=== PATIENT | female | born 1980 | race Two or more races ===

== ENCOUNTER → 2024-09-30 | Outpatient (CLI) | payer MEDICAID, SELFPAY ==
--- NOTE | 2024-09-30 14:15 | XR_ITS ---
Examination: Screening digital mammography, bilateral Computer aided detection 3-D breast Tomosynthesis, bilateral Date and time of exam: 09/30/2024, 2:06 PM Comparisons: August 2023, September 2023 Indications: Screening Technique: Nonmagnified MLO, CC views of the breasts to been obtained, reconstructed from 3-D Tomosynthesis images. R2 computer aided detection program utilized for evaluation of suspicious masses and/or abnormal calcifications. 3-D Tomosynthesis images obtained. Technologist: Findings: There are scattered areas of fibroglandular density. No evidence of abnormal masses or suspicious calcifications. Impression: BI-RADS category 1: Negative findings (within normal) Recommend 1 year follow-up mammogram
== END | disposition home or self-care (01) ==
PROVIDERS: PCP Nurse Practitioner Primary Care; Referring Provider Nurse Practitioner Primary Care; Visit Provider Nurse Practitioner Primary Care
DX: Z12.31 Encounter for screening mammogram for malignant neoplasm of breast (principal); R92.313 Mammographic fatty tissue density, bilateral breasts
CPT/HCPCS: 77063; 77067

== ENCOUNTER 2025-03-14 21:23 | Emergency (ER) | payer MEDICAID, SELFPAY ==
--- NOTE | 2025-03-14 21:40 | XR_ITS ---
Examination: Transvaginal ultrasound of the pelvis, complete Technique: Transvaginal sonographic images pelvis performed using arteaga scale imaging Exam date and time: March 14, 2025, 2156 hrs. Findings: Uterus 9.8 cm endometrial stripe 0.4 cm No uterine mass or intrauterine gestation Ovaries obscured by bowel gas Impression: Limited study No uterine mass or intrauterine gestation.
--- NOTE | 2025-03-14 21:46 | EDNOTE_ITS ---
ED OB Contraction Preg RMI/HPI General Chief complaint: Vaginal Bleeding Stated complaint: VAGINAL BLEEDING Time Seen by Provider: 03/14/25 21:32 Source: patient Arrival date/time: 03/14/25 21:23 Mode of arrival: ambulatory RME / HPI RME / HPI Narrative: Ms. Reynolds is a 44-year-old female with no significant past medical history who presented to [facility] emergency department with a chief complaint of vaginal bleeding. 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 Related Data Previous Rx's ?Medication ?Instructions ?Recorded albuterol sulfate 90 mcg/actuation 2 puff inhalation Q ID PRN 11/24/21 aerosol inhaler shortness of breath or wheez ing #8.5 grams ibuprofen 600 mg tablet 600 mg PO QID PRN pain #30 t abs 11/24/21 ibuprofen 800 mg tablet 800 mg PO TID PRN pain #30 t abs 11/29/21 ibuprofen 800 mg tablet 800 mg PO TID PRN pain #30 t abs 02/08/22 tramadol 50 mg tablet 50 mg PO BID PRN pain #8 tab s 02/08/22 polyethylene glycol 3350 17 gram 17 g PO QDAY #14 ea 0 08/16/22 oral powder packet (Miralax) naproxen 500 mg tablet (Naprosyn) 500 mg PO BID PRN pa in #60 tabs 08/30/22 Allergies Allergy/AdvReac Type Severity Reaction Status Date / Time No Known Drug Allergies Allergy Verified 03/14/25 21:24 Review of Systems Review of Systems Systems Reviewed: All systems reviewed, normal except as documented Past Medical History Past Medical History NEUROLOGIC: Negative Neurological Disorders or Seizures CARDIAC: Positive Edema; Negative Cardiac Disorders or Congestive Heart Failure RESPIRATORY: Negative Chronic Obstructive Pulmonary Disease (COPD) or Sleep Apnea GASTROINTESTINAL: Negative Gastrointestinal Disorders GENITOURINARY: Negative Genitourinary Disorders or Renal Disease REPRODUCTIVE: Positive Previous Pregnancies MUSCULOSKELETAL: Positive Musculoskeletal Disorders ENDOCRINE: Positive Endocrine Disorders and Hypoglycemia; Negative Diabetes Mellitus Type 1 or Diabetes Mellitus Type 2 HEMATOLOGIC: Negative Blood Disorders or Anemia OTHER HISTORY: Positive Anesthesia Reactions; Negative Autoimmune Disease, Blood Transfusions, Blood Transfusion Reaction, Chemotherapy, MRSA, Clostridium Difficile or Cancer Surgical History SURGICAL: Positive Tubal Ligation Social History SMOKING STATUS: Never smoker ED Exam Narrative Physical exam: Physical Exam General: Awake and in no acute distress. Conversational and non-toxic appearing. HEENT: Normocephalic, atraumatic, mucous membranes moist. Heart: Regular rate and rhythm, no murmurs. Lungs: Clear to auscultation with no wheezing or crackles. Abdomen: Soft, nondistended, minimal lower abdomen tenderness, positive bowel sounds. ?No guarding or rebound tenderness. Neurologic: Alert and oriented x3, no gross neurological deficit, and patient able to move all 4 extremities. Extremities: No edema. Skin: No rash or ecchymoses. Course Quality Measures none Orders Category Date Time Status US transvaginal Stat Exams 03/14/25 21:40 Completed Beta HCG,Quantitative Stat Lab 03/14/25 22:03 Completed CBC Stat Lab 03/14/25 22:03 Completed CMP [Comprehensive Metabolic Panel] Stat Lab 03/14/25 22:03 Completed Free T4 (Free Thyroxine) Stat Lab 03/14/25 22:03 Completed INR [Prothrombin Time with INR] Stat Lab 03/14/25 22:03 Completed PTT [Partial Thromboplastin Time] Stat Lab 03/14/25 22:03 Completed TSH [Thyroid Stimulating Hormone] Stat Lab 03/14/25 22:03 Completed Type and Screen Stat Lab 03/14/25 22:03 Completed Dicyclomine [Bentyl] Med 03/14/25 21:38 Discontinued 10 mg PO X1 ONE MEDRoxyPROGESTERone ACET Inj [Depo-Provera Inj] Med 03/14/25 23:16 Discontinued 150 mg IM X1 ONE Naproxen [Naprosyn] Med 03/14/25 21:44 Discontinued 500 mg PO X1 ONE Vital Signs Vital signs: Vital Signs Temperature 97.7 F 03/14/25 23:57 Pulse Rate 72 03/14/25 23:57 Respiratory Rate 17 03/14/25 23:57 Blood Pressure 135/82 H 03/14/25 23:57 Pulse Oximetry (%) 97 03/14/25 23:57 Vaginal Bleeding MDM Narrative MDM Narrative: # Abnormal uterine bleeding # Vaginal bleeding 44-year-old female with no significant past medical history seen in ED today for vaginal bleeding Patient had normal menstrual flow-up till , has continuous heavy flow since 03/11 for the last 5 days reports heavy bleeding with clots Workup: CBC: WBC 9.1 hemoglobin 11.5 hematocrit 34.8, platelets 238 Coags: PT 10.4 INR 0.9 APTT 24.4 Chemistry: Sodium 142 potassium 3.8 chloride 108 bicarb 27.8 anion gap 6 BUN 8 creatinine 0.8 GFR greater than 60 glucose 79 osmolality 280 corrected calcium 9.2 bilirubin 0.3 AST 11 ALT less than 7 alk phos 43 total protein 6.5 albumin 4.2 globulin 2.3 TSH 2.96 free T41.21 Beta-hCG less than 0 Transvaginal ultrasound shows uterus 9.8 cm endometrial stripe 0.4 cm no uterine mass or intrauterine gestation Findings discussed with [facility] EQUIP[facility] OPER[facility] Dr. Guerrier who recommended Depo-Provera IM 150 mg, otherwise patient was given naproxen 500 mg and dicyclomine 10 mg p.o. in the ED. Patient stable for discharge, encourage patient to follow-up with [facility] E[facility]PER[facility] Dr Guerrier outpatient Case discussed with Attending Physician Dr. Keily Block MD Internal Medicine PGY-2 Disclaimer: This note was dictated by speech recognition. Minor errors in senior developer may be present due to voice recognition software. Patient data External records reviewed:: [facility] previous records Clinical information provided by:: patient Social determinants that could affect healthcare access:: none Patient has the following chronic illnesses:: None How is presenting disease/condition affected by chronic disease/condition?: no chronic disease Evaluation data The following diagnostics were reviewed and interpreted by me:: lab results and radiology exam(s) Lab and/or radiology exams considered but not ordered:: None Interpretation Summary: CBC: WBC 9.1 hemoglobin 11.5 hematocrit 34.8, platelets 238 Coags: PT 10.4 INR 0.9 APTT 24.4 Chemistry: Sodium 142 potassium 3.8 chloride 108 bicarb 27.8 anion gap 6 BUN 8 creatinine 0.8 GFR greater than 60 glucose 79 osmolality 280 corrected calcium 9.2 bilirubin 0.3 AST 11 ALT less than 7 alk phos 43 total protein 6.5 albumin 4.2 globulin 2.3 TSH 2.96 free T41.21 Beta-hCG less than 0 Transvaginal ultrasound shows uterus 9.8 cm endometrial stripe 0.4 cm no uterine mass or intrauterine gestation Medications / Prescriptions Medications or Prescriptions considered but not ordered:: None Medication administrations:: Medication Administration History Discontinued Medications Dicyclomine HCl (Dicyclomine 10 Mg Capsule) 10 mg PO X1 ONE Stop: 03/14/25 21:39 Last Admin: 03/14/25 21:51 Dose: 10 mg Documented By: JEAN PAUL Medroxyprogesterone Acetate (Medroxyprogesterone Acet Inj 150 Mg/Ml Syringe) 150 mg IM X1 ONE Stop: 03/14/25 23:17 Last Admin: 03/14/25 23:53 Dose: 150 mg Documented By: OA Naproxen (Naproxen 250 Mg Tablet) 500 mg PO X1 ONE Stop: 03/14/25 21:45 Last Admin: 03/14/25 21:50 Dose: 500 mg Documented By: OA As Above Consultations Consultation(s) initiated? (list below): Yes Consultation #1 (Physician, Specialty, Details): Dr Guerrier, [facility] EQUIPMENT OPERATOR Diagnosis Vaginal Bleeding Differential Diagnosis: dysfunctional uterine bleeding, menometrorrhagia and vaginal bleeding Most likely diagnosis given after review of the tests above:: Abnormal Uterine Bleeding Admission Indicated Admission indicated?: not indicated Admission Request Was there a request for admission?: No Disposition Plan Disposition Plan: Discharge Discharge Attestation Discharge Attestation: The patient and all family members were given an opportunity to ask questions and understood the discharge instructions. Discharge instructions specifically effects, indications for sooner follow up or return to the emergency department, and the expected course of current diagnosis. Patient condition: Stable Discharge Plan Plan Patient Disposition: HOME (Self Care) Patient condition on transfer: Stable Health Concerns: - You were seen in the emergency department today for acute abnormal uterine bleeding, we did a transvaginal ultrasound which showed uterus 9.8 cm, endometrial stripe 0.4 cm and your lab work showed hemoglobin 11.5. We discussed these findings with the RO[facility] EQUIPMENT OPERATOR who recommended Depo-Provera shot 150mg which was given to you in the emergency department. - Otherwise your labs were unremarkable, we recommend following up with [facility] EQU[facility] OPER[facility] outpatient, have attached the office information for Dr. Guerrier please call his office to make an appointment. - Follow-up with your primary care physician within 1 week, do further anemia workup as warranted - Return to the emergency department if your symptoms worsen or you have uncontrolled bleeding. Prescriptions/Referrals Prescriptions/Med Rec: No Action ibuprofen 600 mg tablet 600 mg PO QID PRN (Reason: pain) Qty: 30 0RF albuterol sulfate 90 mcg/actuation HFA aerosol inhaler 2 puff inhalation QID PRN (Reason: shortness of breath or wheezing) Qty: 8.5 0RF ibuprofen 800 mg tablet 800 mg PO TID PRN (Reason: pain) Qty: 30 0RF tramadol 50 mg tablet 50 mg PO BID PRN (Reason: pain) Qty: 8 0RF ibuprofen 800 mg tablet 800 mg PO TID PRN (Reason: pain) Qty: 30 0RF polyethylene glycol 3350 [Miralax] 17 gram powder in packet 17 g PO QDAY Qty: 14 0RF naproxen [Naprosyn] 500 mg tablet 500 mg PO BID PRN (Reason: pain) Qty: 60 0RF Referrals: Perico Guerrier MD [Physician, [facility] EQUIPMENT OPERATOR] - In 1 week No Primary/Family,Physician [Primary Care Provider] - In 1 week Problem List Clinical Impression: Dysfunctional uterine bleeding Patient/Caregiver Discharge Instructions Discharge Activity: activity as tolerated Education Materials: ED Dysfunctional Uterine Bleeding Print Language: Belarusian Stand Alone Forms: Shannan Award Info., Patient Portal Info Letter
[2025-03-14] MEDS: NAPROXEN 250 MG TABLET 500 MG PO (21:50)
[2025-03-14] MEDS: DICYCLOMINE 10 MG CAPSULE PO (21:51)
[2025-03-14 22:31] LABS: Basophils # (Auto) 0.0 Thou/mm3 (0.0-0.2); Basophils % (Auto) 0 % (0-2.5); Eosinophils # (Auto) 0.1 Thou/mm3 (0.0-0.5); Eosinophils % (Auto) 2 % (0-10); Hematocrit 34.8 % (36.0-46.0); Hemoglobin 11.5 g/dL (12.0-16.0); Immature Granulocytes Auto 0.02 Thou/mm3 (0.00-0.00); Lymphocytes # (Auto) 3.6 Thou/mm3 (1.0-4.8); Lymphocytes % (Auto) 39 % (10-50); Mean Corpuscular HGB Conc 33.0 g/dl (31.0-37.0); Mean Corpuscular Hemoglobin 28.0 pg (25.0-35.0); Mean Corpuscular Volume 85 fL (80-100); Monocytes # (Auto) 0.6 Thou/mm3 (0.0-0.8); Monocytes % (Auto) 6 % (0-12); Neutrophils # (Auto) 4.8 Thou/mm3 (1.8-7.7); Neutrophils % (Auto) 53 % (37-80); Nucleated Red Blood Cell # 0.00 Thou/mm3 (0.00-0.00); Nucleated Red Blood Cell % 0 /100 WBC (0); Platelet Count 238 Thou/mm3 (140-440); RDW Standard Deviation 43.2 fL (36.4-46.3); Red Blood Count 4.10 Miln/mm3 (4.00-5.20); White Blood Count 9.1 Thou/mm3 (3.6-11.0)
[2025-03-14 22:47] LABS: INR 0.9 (0.9-1.3); Partial Thromboplastin Time 24.4 Seconds (22.0-36.0); Prothrombin Time 10.4 Seconds (9.0-12.2)
[2025-03-14 23:06] LABS: Alanine Aminotransferase < 7 U/L (10-49); Albumin, Serum 4.2 gm/dL (3.5-5.0); Albumin/Globulin Ratio 1.8 (1.2-2.2); Alkaline Phosphatase 43 U/L (46-116); Anion Gap 6 (7-16); Aspartate Amino Transferase 11 U/L (0-34); BUN/Creatinine Ratio 10 Ratio (12-20); Beta HCG,Quantitative < 0 mIU/mL (<5.0); Bilirubin,Total 0.3 mg/dL (0.3-1.2); Blood Urea Nitrogen 8 mg/dL (9-23); Calcium 9.2 mg/dL (8.3-10.6); Calcium (Corrected) 9.2 mg/dL (8.5-10.1); Carbon Dioxide 27.8 mMol/L (20.0-31.0); Chloride 108 mMol/L (98-107); Creatinine (Component) 0.8 mg/dL (0.6-1.3); Free T4 (Free Thyroxine) 1.21 ng/dL (0.89-1.76); Globulin 2.3 gm/dL (2.3-3.5); Glucose 79 mg/dL (74-106); Osmolality,Calculated 280 (275-295); Potassium 3.8 mMol/L (3.4-5.1); Sodium 142 mMol/L (136-145); Thyroid Stimulating Hormone 2.94 uIU/mL (0.55-4.78); Total Protein 6.5 gm/dL (5.7-8.2); eGFR > 60 See Note
[2025-03-14] MEDS: MEDRoxyPROGESTERone ACET Inj 150 MG/ML SYRINGE IM (23:53)
[2025-03-14 23:57] VITALS: BP 135/82; PULSE 72; RESP 17; TEMP 36.5; O2SAT 97
[2025-03-15 00:07] VITALS: BP 122/84; PULSE 89; RESP 16; TEMP 36.7; O2SAT 99
== END 2025-03-14 23:58 | disposition home or self-care (01) ==
PROVIDERS: Emergency Provider Emergency Medicine
DX: N93.8 Other specified abnormal uterine and vaginal bleeding (principal)
CPT/HCPCS: 36415; 76830; 80053; 81001; 84439; 84443; 84702; 85025; 85610; 85730; 86850; 86900; 86901; 96372; 99283; J1050; A9270